=== PATIENT | female | born 1990 | race Two or more races ===

== ENCOUNTER 2017-01-12 20:12 | Emergency (ER) | payer MEDICAID ==
[2017-01-12] MEDS ORDERED: METOCLOPRAMIDE HCL 5 MG/ML 2ML VIAL ONE (21:36)
[2017-01-12] MEDS ORDERED: Oseltamivir Phosphate 75 MG CAP ONE (21:36)
== END 2017-01-12 20:17 | disposition home or self-care (01) ==
LOC: ED 20:12
DX: O98.511 Other viral diseases complicating pregnancy, first trimester (principal); J11.1 Influenza due to unidentified influenza virus with other respiratory manifestations; O21.0 Mild hyperemesis gravidarum; Z3A.12 12 weeks gestation of pregnancy
CPT/HCPCS: 87880; 99283 ×2; 96372; J2765; A9270

== ENCOUNTER 2017-03-10 11:47 | Outpatient (CLI) | payer MEDICAID ==
[2017-03-10 12:10] VITALS: BMI 23.6
[2017-03-10 13:30] LABS: SPECIFIC GRAVITY 1.025 (1.001-1.030); URINE BILIRUBIN NEGATIVE (NEGATIVE); URINE BLOOD TRACE (NEGATIVE); URINE GLUCOSE (UA) NEGATIVE (NEGATIVE); URINE LEUKOCYTE ESTERASE TRACE (NEGATIVE); URINE NITRITE NEGATIVE (NEGATIVE); URINE PROTEIN NEGATIVE (NEGATIVE); URINE UROBILINOGEN NORMAL (0-1 mg/dl)
[2017-03-10 13:31] LABS: URINE APPEARANCE HAZY; URINE COLOR YELLOW
[2017-03-10 13:38] LABS: URINE BACTERIA 1+
== END 2017-03-10 14:32 | disposition home or self-care (01) ==
LOC: FBCOUT 11:47 → FBC 11:49 → FBCOUT 14:32
PROVIDERS: ATTEND Family Medicine
DX: O26.892 Other specified pregnancy related conditions, second trimester (principal); R10.30 Lower abdominal pain, unspecified; Z3A.21 21 weeks gestation of pregnancy
CPT/HCPCS: 81001; 87210; 59050; G0463